=== PATIENT | female | born 2000 | race Caucasian/White ===

== ENCOUNTER 2021-12-02 21:24 | Inpatient (IN) | payer OTHER ==
[~2021-12-02] VITALS: Ht 177.8 cm; Wt 108.9 kg
[2021-12-03 02:57] LABS: HEMOGLOBIN 14.5 gm/dl (12.3-15.3); RED BLOOD COUNT 5.06 M/UL (4.00-5.10); WHITE BLOOD COUNT 13.3 K/UL (4.5-11.0)
[2021-12-03 03:33] LABS: BUN/CREATININE RATIO 12 (0-10)
[2021-12-03] MEDS ORDERED: ANORO ELLIPTA1 EACH INH (09:57)
[2021-12-03 12:52] LABS: BORDETELLA PARAPERTUSSIS Not Detected (Not Detectd); BORDETELLA PERTUSSIS Not Detected (Not Detectd); CHLAMYDIA PNEUMONIAE Not Detected (Not Detectd); CORONAVIRUS HKU1 Not Detected (Not Detectd); CORONAVIRUS NL63 Not Detected (Not Detectd); CORONAVIRUS OC43 Not Detected (Not Detectd); CORONOAVIRUS 229E Not Detected (Not Detectd); HUMAN METAPNEUMOVIRUS Not Detected (Not Detectd); INFLUENZA A Not Detected (Not Detectd); INFLUENZA B Not Detected (Not Detectd); MYCOPLASMA PNEUMONIAE Not Detected (Not Detectd); PARAINFLUENZA VIRUS 1 Not Detected (Not Detectd); PARAINFLUENZA VIRUS 2 Not Detected (Not Detectd); PARAINFLUENZA VIRUS 3 Not Detected (Not Detectd); PARAINFLUENZA VIRUS 4 Not Detected (Not Detectd); RESPIRATORY SYNCYTIAL VIRUS Not Detected (Not Detectd)
[2021-12-03 14:25] LABS: HUMAN RHINOVIRUS/ENTEROVIRUS DETECTED (Not Detectd); SARS-CoV-2 NOT DETECTED (Not Detectd)
[2021-12-04] MEDS ORDERED: BUDESONIDE0.5 MG/2 M NEB ×2 (09:45→15:04)
[2021-12-04] MEDS ORDERED: IPRAT-ALBUT 0.5-3 ML NEB ×2 (09:45→15:04)
[2021-12-04] MEDS ORDERED: AZITHROMYCIN250 MG PO ×2 (09:45→15:04)
[2021-12-04] MEDS ORDERED: PREDNISONE 5 MG5 MG PO ×2 (09:45→15:04)
[2021-12-04] MEDS ORDERED: AEROECLIPSE II1 EACH MC ×2 (09:46→09:47)
== END 2021-12-04 14:30 | disposition home or self-care (01) | DRG 193 ==
LOC: M/S 22:20
PROVIDERS: Internal Medicine; ADMIT Internal Medicine
DX: J18.9 Pneumonia, unspecified organism (principal); J96.01 Acute respiratory failure with hypoxia; E87.2 Acidosis; J45.901 Unspecified asthma with (acute) exacerbation; D64.9 Anemia, unspecified; G47.33 Obstructive sleep apnea (adult) (pediatric); E66.9 Obesity, unspecified; B34.8 Other viral infections of unspecified site; Z20.822 Contact with and (suspected) exposure to COVID-19; Z99.81 Dependence on supplemental oxygen; Z79.899 Other long term (current) drug therapy; Z91.040 Latex allergy status; Z79.52 Long term (current) use of systemic steroids
CPT/HCPCS: 36415; 80048; 83605; 85025; 87633; 94640; 94664; 94760; J0456; J0696; J1650; J2920; J7030

== ENCOUNTER → 2022-01-03 | Outpatient (CLI) | payer OTHER ==
[~2022-01-03] MED LIST: AEROECLIPSE II1 EACH MC; ANORO ELLIPTA1 EACH INH; AZITHROMYCIN250 MG PO; BUDESONIDE0.5 MG/2 M NEB; IPRAT-ALBUT 0.5-3 ML NEB; PREDNISONE 5 MG5 MG PO
== END ==
LOC: HEART 5 10:35
DX: J45.909 Unspecified asthma, uncomplicated (principal)
CPT/HCPCS: 94060; 94729